=== PATIENT | female | born 1985 | race African-American/Black ===

== ENCOUNTER 2021-05-03 08:31 | Emergency (ER) | payer MEDICAID, SELFPAY ==
[2021-05-03 08:47] VITALS: BP 128/73; PULSE 84; RESP 16; TEMP 36.8; O2SAT 100
--- NOTE | 2021-05-03 09:16 | ED.FEMALEGU ---
HPI - Female Genitourinary General Chief complaint: Urogenital-Female Stated complaint: Stomach Pain Source: patient and RN notes reviewed Limitations: no limitations History of Present Illness HPI Narrative: The patient, is a EDC 01 September by [facility], presents with vaginal discharge. Patient is concerned that she has a couple week, nearly month-long history of vaginal discharge, and her l partner is unfaithful. No fever, blood, frequency/urgency/dysuria, back pain; no decreased activity, discharge-she does have cramps. Symptoms are mild most noticeable when wiping; advised to follow-up with [facility] or return to hospital [that will be delivering baby] for any pain/cramping. She requests STI antibiotic treatment today. Related Data Allergies Allergy/AdvReac Type Severity Reaction Status Date / Time No Known Allergies Allergy Verified 05/03/21 09:14 Review of Systems Review of Systems: General/Constitutional: No weight loss,fever Eyes: N0: Redness,discharge Ears/Nose/Throat: No: Epistaxis,ear discharge Respiratory: Denies: Hemoptysis Gastrointestinal: No Vomiting, Bleeding-rectal Skin: No Lumps, eruption Neurologic: No Focal Weakness,Sz Hematologic: Denies: Petechiae/Purpura Psychiatric: No: Suicida ideationl All Other Systems: Reviewed and Negative PMFSH Comments At time of signature, agree with nursing past medical, surgical, social and family history. There is no relevant family history pertinent to the presenting complaint Exam Narrative: General Appearance: Well appearing, No distress EYE: PERRLA, Conjunctiva clear Ears: External ear normal Nose: Normal nose Mouth/Throat: Normal appearing, Normal lips Neck: Supple Respiratory: Airway patent, No respiratory distress Cardiovascular: RRR Abdomen: Gravid soft, Non-tender, No massess, No organomegaly (no rebound/ surgical signs), Hyperactive bowel sounds Musculoskeletal: Full ROM Skin: Warm, Dry Neurological: A&O x3, CN II-X intact Psychiatric: Normal mood, Normal affect Course Vital Signs Vital signs: Vital Signs Temperature 98.2 F 05/03/21 08:47 Pulse Rate 84 05/03/21 08:47 Respiratory Rate 16 05/03/21 08:47 Blood Pressure 128/73 05/03/21 08:47 Pulse Oximetry 100 05/03/21 08:47 Temperature 98.2 F 05/03/21 08:47 Pulse Rate 84 05/03/21 08:47 Respiratory Rate 16 05/03/21 08:47 Blood Pressure 128/73 05/03/21 08:47 Pulse Oximetry 100 05/03/21 08:47 MDM - Female Genitourinary Lab Data Labs: Lab Results 05/03/21 Range/Units 08:55 C.trachomatis RNA (TMA) Pending N.gonorrhoeae RNA (TMA) Pending T. vaginalis Amp RNA Pending Urine Glucose Negative Reference Range: Negative Urine Bilirubin Negative Reference Range: Negative Urine Ketone Negative Reference Range: Negative Urine Specific [place] 1.020 Reference Range:1.001-1.035 Urine Blood Negative Reference Range: Negative * * Urine pH 7.0 Reference Range: 5.0-9.0 Urine Protein Negative Reference Range: Negative Urine Urobilinogen 0.2 Reference Range: 0.2-1.0 Urine Nitrate Negative Reference Range: Negative Urine Leukocyte Negative Reference Range: Negative Urine Color Yellow
[2021-05-03] MEDS: LIDOCAINE HCL 1% LOCAL INJ 20 ML VIAL 2.1 ML XX (09:35)
[2021-05-03] MEDS: cefTRIAXone 1 GM VIAL 0.5 GM IM (09:36)
== END 2021-05-03 10:02 | disposition home or self-care (01) ==
PROVIDERS: Emergency Provider Emergency Medicine
DX: O26.899 Other specified pregnancy related conditions, unspecified trimester (principal); N89.8 Other specified noninflammatory disorders of vagina
CPT/HCPCS: 81003; 87086; 87088; 87491; 87591; 87661; 96372; 99214; G0463; J0696